=== PATIENT | female | born 2000 ===

== ENCOUNTER → 2025-10-07 13:37 | Outpatient (BNVA) | payer MEDICAID, SELFPAY | PROVIDERS: Visit Provider Obstetrics & Gynecology | DX: Z34.90 Encounter for supervision of normal pregnancy, unspecified, unspecified trimester (principal) | CPT/HCPCS: 80307; 82950; 84315; 85025; 86850 ==

== ENCOUNTER → 2025-10-21 15:03 | Outpatient (BNVA) | payer MEDICAID, SELFPAY | PROVIDERS: Visit Provider Obstetrics & Gynecology | DX: O26.893 Other specified pregnancy related conditions, third trimester (principal); Z3A.33 33 weeks gestation of pregnancy; Z67.91 Unspecified blood type, Rh negative; F17.290 Nicotine dependence, other tobacco product, uncomplicated | CPT/HCPCS: 84315 ==